=== PATIENT | female | born 1990 | race Caucasian/White ===

== ENCOUNTER 2017-03-19 20:48 | Emergency (ER) | payer OTHER ==
[~2017-03-19] VITALS: Ht 177.8 cm; Wt 54.7 kg
[~2017-03-19 20:48] MED LIST: 12 HOUR DECONG120 M1 PO; DILAUDID2 MG PO; INDOCIN50 MG PO; Lortab,Vicodin Elixir PO; MACROBID100 MG PO; MIRENA52 MG IY; PRENATAL TABLE1 EAC3 PO
[2017-03-19 22:34] LABS: HEMATOCRIT 41.6 % (36.0-46.0); MCH 29.7 PG (29.0-34.0); MCHC 34.4 G/DL (30.0-36.0); MCV 86.3 FL (83-99); MEAN PLAT.VOLUME 10.9 uM^3 (9.5-12.4); PLATELET COUNT 209 K/uL (156-360); RBC DIS.WIDTH-CV 12.1 % (11.8-14.6); RBC DIS.WIDTH-SD 38.9 % (39-53); RED BLOOD COUNT 4.82 M/uL (3.80-5.20); WHITE BLOOD COUNT 7.5 K/uL (4.1-10.2)
[2017-03-19 22:45] LABS: CHLORIDE 109 mEq/L (99-109); POTASSIUM 3.7 mEq/L (3.7-5.4); SODIUM 141 mEq/L (136-147)
[2017-03-19 22:47] LABS: GLUCOSE 83 mg/dL (70-99)
[2017-03-19 22:48] LABS: ADD MIUA? YES; BILIRUBIN NEGATIVE; BLOOD NEGATIVE; COLOR YELLOW ((YELLOW)); GLUCOSE (STRIP) NEGATIVE; KETONES NEGATIVE; LEUKOCYTES TRACE; NITRITE NEGATIVE; PROTEIN (STRIP) NEGATIVE; SPECIFIC GRAVITY 1.021 (1.000-1.030); UROBILINOGEN 0.2 MG/DL (0.2-1.0)
[2017-03-19 22:49] LABS: ANION GAP 6 MEQ/L (2-14); TOTAL BILIRUBIN 0.3 mg/dL (0.0-1.0)
[2017-03-19 22:51] LABS: ALKALINE PHOSPHATASE 65 IU/L (3-129); GFR ESTIMATE (CALCULATED) > 59 mL/min/
[2017-03-19 22:52] LABS: BACTERIA NONE SEEN /HPF; EPITHELIAL CELLS 1+ /HPF; MUCUS TRACE /LPF; RED BLOOD CELLS 0-5 /HPF (0-5); UCUL ADDED? NO; WHITE BLOOD CELLS 0-5 /HPF (0-5)
[2017-03-19 22:52] LABS: UREA NITROGEN (BUN) 13 mg/dL (9-23)
[2017-03-19 23:01] LABS: QUANTITATIVE HCG < 4.0 MIU/ML
[2017-03-19 23:50] VITALS: BP 129/68
== END 2017-03-19 23:52 | disposition home or self-care (01) ==
LOC: RME 20:48 → EME 20:48 → RME 23:52
PROVIDERS: Physician Assistant
DX: S80.12XA Contusion of left lower leg, initial encounter (principal); S80.11XA Contusion of right lower leg, initial encounter; M25.552 Pain in left hip; M79.604 Pain in right leg
CPT/HCPCS: 80053; 81003; 84443; 84702; 85027; 99281; 99283